=== PATIENT | male | born 1970 | race Caucasian/White ===

== ENCOUNTER 2018-11-30 03:36 | Emergency (ER) | payer SELFPAY ==
[~2018-11-30] VITALS: Ht 172.7 cm; Wt 77.0 kg
[2018-11-30] MEDS ORDERED: ACETAMINOPHEN 325MG TABLET PO ONE (04:45)
[2018-11-30] MEDS ORDERED: TETANUS, DIPHTHERIA, PERTUSSIS VAC/PF 0.5ML (>7YR OLD) IM ONE (04:45)
[2018-11-30 07:30] VITALS: BP 100/66
== END 2018-11-30 07:58 | disposition home or self-care (01) ==
LOC: ER 03:36
DX: S00.83XA Contusion of other part of head, initial encounter (principal); S20.219A Contusion of unspecified front wall of thorax, initial encounter; Y08.89XA Assault by other specified means, initial encounter; Y93.89 Activity, other specified; Y92.89 Other specified places as the place of occurrence of the external cause; Z23 Encounter for immunization; R03.0 Elevated blood-pressure reading, without diagnosis of hypertension
CPT/HCPCS: 70450; 70486; 71045; 90471; 90715; 99284; Z7610